=== PATIENT | female | born 1955 | race African-American/Black ===

== ENCOUNTER → 2016-04-26 | Outpatient (CLI) | payer MEDICARE, OTHER ==
[~2016-04-26] MED LIST: ALBU18HF IH; ALEN70TA30; ASPI-650 PO; BENA10TA48; CARI350T PO; CILO100T PO; FLUO20CA38; HYDR-3504; MIRT15TA3 PO; PREG50CA PO; VAL2 PO; ZPAK; [UNRECOGNIZED DRUG - CODE]
--- NOTE | 2016-04-26 18:07 | RADRPT ---
PROCEDURE: CT Chest without contrast. CLINICAL INDICATION: Right chest pain. Abnormal chest radiograph with displacement of the trachea. TECHNIQUE: Helical axial sections were obtained through the chest without intravenous contrast enh ancement. Coronal and sagittal reformatted images were obtained from the axial source images. Total exam DLP is 452.84 mGy-cm. CTDIvol is 14.05 mGy. One or more of the following dose reduction memo hniques were used: Automated exposure control, adjustment of the mA and/or kV according to patient s ize, use of iterative reconstruction technique. COMPARISON: None FINDINGS: The lungs are clear with no airspace or interstitial disease. There is a possible mass in the azygo-esophageal recess inferiorly measuring 2.4 x 2.3 cm in AP and transverse dimensions on the right side of the esophagus. There is no other pulmonary nodule or mas s lesion. There is no mediastinal or hilar lymphadenopathy or mass. There is no axillary, supraclavicular, or internal mammary lymphadenopathy. The thoracic aorta is not dilated. Calcification is present in the aorta consistent with atheroscle rosis. The heart size is normal. There is an aberrant right subclavian artery arising distally from the ao rtic arch and extending posterior to the esophagus. This is a normal variant and may account for th e findings on chest radiograph. There is no pleural effusion or pericardial effusion. Images through the upper abdomen demonstrate normal visualized portions of the liver, spleen, and ad renals. There are degenerative changes of the spine. There is no fracture or lytic lesion. IMPRESSION: 1. Possible mass in the azygo-esophageal recess inferiorly measuring 2.4 x 2.3 cm. Correlation wit h contrast enhanced CT scan of the chest advised. 2. Atherosclerosis. 3. Aberrant right subclavian artery arising distally from the aortic arch and extending posterior t o the esophagus, a normal variant. This may account for the findings on chest radiograph. 4. Degenerative changes of the spine. 5. Otherwise unremarkable study. RPTAT: QQ .Federico Barton MD, MD Date Time Electronically viewed and signed by .Federico Barton MD, on 04/26/2016 18:07 .R/
== END | disposition home or self-care (01) ==
LOC: C/S 14:00
PROVIDERS: ATTEND Internal Medicine
DX: R93.49 Abnormal radiologic findings on diagnostic imaging of other urinary organs (principal); R07.9 Chest pain, unspecified; I70.90 Unspecified atherosclerosis
CPT/HCPCS: 71250

== ENCOUNTER → 2016-05-07 | Outpatient (CLI) | payer MEDICARE, OTHER ==
[~2016-05-07] MED LIST changes: +IOHEXOL 300MG/ML 150 ML BTL ONE; +SOD CHLORIDE 0.9% 100 ML ONE
--- NOTE | 2016-05-07 19:06 | RADRPT ---
PROCEDURE: CT Chest with and without. CLINICAL INDICATION: Chest pain in a patient with known lupus TECHNIQUE: CT scan of the chest with and without contrast was performed on a high-resolution multi detector CT scanner. The patient was scanned both before and following the uncomplicated intravenous administration of 90 cc of Omnipaque-300 contrast. Coronal and sagittal reformatted images were ob tained from the axial source images. The total exam CTDI = 15.82 mGy and DLP = 605.51 mGy-cm. One of the following 3 dose reduction techniques were utilized on this CT examination: Automated ex posure control; adjustment of the mA and/or kV according to patient size; or use of iterative recons truction technique. COMPARISON: 04/26/2016 CT chest FINDINGS: The visualized base of the neck and bilateral thyroid lobes are normal. The lungs are remarkable for bibasilar scarring. No focal opacification, effusion, pneumothorax, ed neelam, or nodules are seen. There is no pulmonary infiltrate. No mass lesion to suggest neoplasm is identified. The central tracheobronchial tree is clear. The mediastinum is again remarkable for an the aberrant right subclavian artery, normal origins of t he left subclavian artery and joint origin of the bilateral common carotid arteries. The middle medi astinal mass posterior to the left atrium is noted bordering the right lateral esophageal wall. Thi s mass does not enhance following contrast administration and measures 2.4 cm AP by 2.9 cm transvers e by 2.7 cm in superior inferior dimensions. 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 Recommend MRI with contrast to further evaluate. The aorta demonstrates minimal vascular calcifications. No evidence for pathologic lymphadenopathy is present. The heart size is normal w ithout evidence for pericardial thickening or effusion. The limited evaluation of the upper abdomen demonstrates mild diffuse fatty infiltration of the live r. The spleen, pancreas, and bilateral adrenal glands are normal. The patient is status post vance cystectomy changes. The bilateral kidneys demonstrate a right anterior middle to a inferior renal c ortical cyst. This measures 1.4 cm AP by 1.5 cm in transverse dimensions. The axillary regions, march bpectoral regions, and supraclavicular regions are all unremarkable. The surrounding chest wall is u nremarkable. The surrounding osseous structures are mild spondylosis of the imaged spine. No osteol ytic or osteoblastic lesion is detected. IMPRESSION: 1. Middle mediastinal non-enhancing mass measuring 2.4 cm AP by 2.9 cm transverse by 2.7 cm in supe rior inferior dimensions adjacent to the right posterolateral esophageal wall. Differential to incl ude enteric duplication cyst, bronchogenic cyst, and other benign lesions. Recommend MRI the chest with contrast to further evaluate. 2. Aberrant right subclavian artery and common trunk origin of the bilateral common carotid arterie s. 3. Bibasilar scarring 4. Diffuse fatty infiltration of the liver. 5. Right renal cortical cysts. RPTAT: HDC .Debora Mascorro MD, MD Date Time Electronically viewed and signed by .Debora Mascorro MD, MD on 05/07/2016 19:06 .C/
== END | disposition home or self-care (01) ==
LOC: C/S 11:19
PROVIDERS: ATTEND Internal Medicine
DX: R93.8 Abnormal findings on diagnostic imaging of other specified body structures (principal); R07.9 Chest pain, unspecified; K76.0 Fatty (change of) liver, not elsewhere classified; K22.9 Disease of esophagus, unspecified; N28.1 Cyst of kidney, acquired
CPT/HCPCS: 71260; Q9967

== ENCOUNTER → 2016-12-02 | Outpatient (CLI) | payer MEDICARE, OTHER ==
[~2016-12-02] MED LIST changes: +BARIUM SULFATE 135 ML (E-Z HD) PO ONE; -IOHEXOL 300MG/ML 150 ML BTL ONE; -SOD CHLORIDE 0.9% 100 ML ONE
--- NOTE | 2016-12-02 17:53 | RADRPT ---
PROCEDURE: Radiological examination of the esophagus CLINICAL INDICATION: Esophageal duplication cyst TECHNIQUE: The patient was NPO. The patient was given 8 ounces of barium with CO2 crystals orally via a cup. Subsequently videofluoroscopy was performed was performed. Routine esophageal images we re obtained. Fluoroscopy time: 1 min COMPARISON: CT chest from 05/07/2016 FINDINGS: Unremarkable oral phase of swallowing. Normal bolus formation and control. Normal lingular movement and propulsion. Normal bolus transfer. No spillage into pharynx. Unremarkable pharyngeal phase of swallowing. Normal swallow reflex. Normal pharyngeal contraction. N o laryngeal penetration identified. No aspiration identified. No pharyngeal residual identified. The esophagus is narrowed and deviated to the right at the level of the aortic arch, likely due to t he aberrant right subclavian artery/diverticulum of Kommerell seen at this level on the CT study fro m 05/07/2016. Contrast is noted to progress inferior to this level. More inferiorly, at a level just above the diaphragmatic hiatus, there is a structure on the right s trudi of the esophagus which produces mass effect extrinsically on the esophagus, narrowing it. This lesion correlates with a soft tissue lesion seen at this level on the recent CT study. No oral cont rast is noted to opacify the lesion. Contrast is noted to flow past the gastroesophageal junction i nto the stomach where normal rugal folds are opacified. A significant amount of contrast is noted t o hang above this lesion until it finally passes through. Limited views of the stomach are unremarkable. RPTAT: AA IMPRESSION: There is a structure just above the diaphragmatic hiatus on the right side of the esophagus which de viates in extrinsically compresses the esophagus at that level. This lesion corresponds to a soft t issue lesion seen at this level on the CT study from 05/07/2016. The lesion does not opacify with c ontrast. 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 An MRI of the chest without and with intravenou s contrast is recommended for further evaluation. More superiorly, there is a second structure on the left side of the esophagus which deviates and ex trinsically compresses the superior esophagus to the right. 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 RPTAT: EE Vel Elkins, Physician Date Time Electronically viewed and signed by Vel Elkins, Physician on 12/02/2016 17:52 RA/
== END | disposition home or self-care (01) ==
LOC: RAD 09:37
PROVIDERS: ATTEND Internal Medicine Gastroenterology
DX: Q39.8 Other congenital malformations of esophagus (principal)
CPT/HCPCS: 74230

== ENCOUNTER 2017-03-10 07:55 | Day surgery (SDC) | payer MEDICARE, OTHER ==
[~2017-03-10] VITALS: Ht 160 cm; Wt 85.2 kg
[2017-03-10] VITALS (12 sets, daily range): BP systolic 102–137; BP diastolic 61–77; PULSE 54–79; RESP 11–25; Ht 160 cm; Wt 85.2 kg
[~2017-03-10 07:55] MED LIST changes: -BARIUM SULFATE 135 ML (E-Z HD) PO ONE
[2017-03-10] MEDS ORDERED: GABA300C16 PO (08:49)
[2017-03-10] MEDS ORDERED: TRAM-40 PO (08:50)
[2017-03-10] MEDS ORDERED: HYDR12.58 PO (08:51)
--- NOTE | 2017-03-10 08:51 | RADRPT ---
PROCEDURE: XR Chest. CLINICAL INDICATION: Preoperative TECHNIQUE: Single frontal view of the chest was obtained COMPARISON: CT CHESTW 05/07/2016 FINDINGS: The heart is normal in size. There mediastinal mass is not well seen on the plain film radiograph. The lungs are clear. There is no pleural effusion or pneumothorax. RPTAT: AA IMPRESSION: No focal infiltrate. Mediastinal mass seen on CT was not well seen on the plain film radiograph. .Adeel Louise MD, MD Date Time Electronically viewed and signed by .Adeel Louise MD, MD on 03/10/2017 08:51 .S/
[2017-03-10] MEDS ORDERED: MET25 PO (08:52)
[2017-03-10] MEDS ORDERED: ALEN70TA30 PO (08:53)
[2017-03-10] MEDS ORDERED: HYDR200T5 PO (08:54)
[2017-03-10] MEDS ORDERED: BEN50 PO (08:54)
[2017-03-10 09:06] LABS: BASOPHILS % 0.2 % (0.0-2.0); EOSINOPHILS % 0.4 % (0.0-7.0); HEMATOCRIT 35.9 % (37.0-47.0); HEMOGLOBIN 12.5 g/dl (12.0-16.0); LYMPHOCYTES # 1.9 10^3/ul (0.8-2.9); LYMPHOCYTES % 36.4 % (15.0-51.0); MEAN CORPUSCULAR HEMOGLOBIN 33.5 pg (29.0-33.0); MEAN CORPUSCULAR HGB CONC 34.8 g/dl (32.0-37.0); MEAN CORPUSCULAR VOLUME 96.2 fl (82.0-101.0); MONOCYTE # 0.6 10^3/ul (0.3-0.9); MONOCYTES % 10.7 % (0.0-11.0); NEUTROPHIL # 2.7 10^3/ul (1.6-7.5); NEUTROPHILS % 52.1 % (39.0-77.0); PLATELET COUNT 179 10^3/UL (140-415); RED BLOOD COUNT 3.73 10^6/ul (4.20-5.40); RED CELL DISTRIBUTION WIDTH 12.3 % (11.5-14.5); WHITE BLOOD COUNT 5.1 10^3/ul (4.8-10.8)
[2017-03-10 09:26] LABS: INR 0.97; PROTIME 12.9 Sec (12.2-14.2)
[2017-03-10 09:27] LABS: PARTIAL THROMBOPLASTIN TIME 25.9 Sec (25.0-35.0)
[2017-03-10 09:36] LABS: ALBUMIN 3.7 g/dl (3.3-4.9); ALBUMIN/GLOBULIN RATIO 1.08; BILIRUBIN,INDIRECT 0.1 mg/dl (0-1.1); BILIRUBIN,TOTAL 0.1 mg/dl (0.2-1.3); TOTAL PROTEIN 7.1 g/dl (6.1-8.1)
[2017-03-10 09:44] LABS: CALCIUM 9.3 mg/dl (8.4-10.2); CREATININE 1.07 mg/dl (0.44-1.00); POTASSIUM 4.2 mmol/L (3.5-5.1)
[2017-03-10] MEDS ORDERED: LABETALOL HCL 20MG INJ IV PRN (10:00)
[2017-03-10] MEDS ORDERED: FENTAnyl 50 MCG/ML VIAL IV PRN (10:00)
[2017-03-10] MEDS ORDERED: PROCHLORPERAZINE 10 MG INJ IV PRN (10:00)
[2017-03-10] MEDS ORDERED: OXYCODONE/ACETAMINOPHEN (5/325) TAB PO PRN (10:00)
[2017-03-10] MEDS ORDERED: HYDROmorphONE (0.2 MG/ML) 10ML SYG IV PRN (10:00)
[2017-03-10] MEDS ORDERED: hydrALAzine 20 MG INJ IV PRN (10:00)
[2017-03-10] MEDS ORDERED: ONDANSETRON 4 MG INJ IV PRN (10:00)
[2017-03-10] MEDS ORDERED: DIPHENHYDRAMINE 50 MG INJ IV PRN (10:00)
[2017-03-10] MEDS ORDERED: MEPERIDINE 25 MG INJ IV PRN (10:00)
[2017-03-10] MEDS ORDERED: LIDOCAINE 1% (MPF) 30 ML INJ MT ONE (10:15)
[2017-03-10] MEDS ORDERED: LIDOCAINE 2% (SDV) 5 ML INJ ONE (10:27)
[2017-03-10] MEDS ORDERED: PROPOFOL 20 ML ONE (10:27)
[2017-03-10] MEDS ORDERED: MIDAZOLAM 1 MG/ML 2 ML INJ ONE (10:27)
[2017-03-10] MEDS ORDERED: LIDOCAINE 1% (MPF) 30 ML INJ ONE (10:28)
[2017-03-10] MEDS ORDERED: DEXAMETHASONE 4 MG/ML 1 ML INJ ONE (10:39)
[2017-03-10] MEDS ORDERED: ONDANSETRON 4 MG INJ ONE (10:39)
[2017-03-10] MEDS ORDERED: FAMOTIDINE 20 MG INJ ONE (10:39)
[2017-03-10] MEDS ORDERED: SUCCINYLCHOLINE CHLORIDE 100 MG/5 ML SYG IV ONE (10:49)
--- NOTE | 2017-03-10 11:02 | OPR ---
Date/Time of Note Date/Time of Note DATE: 03/10/17 TIME: 11:01 Operative Report Procedure Date: Mar 10, 2017 Preoperative Diagnosis Mediastinal mass Postoperative Diagnosis same Surgeon see signature line Jan[employer]er no Anesthesia Type: general Estimated Blood Loss: none Transfusion none Specimen Bronch Bx Grafts/Implants none Complications none Procedure Description Dictated RAMÓN PRESCOTT MD Mar 10, 2017 11:02
--- NOTE | 2017-03-10 11:23 | OPR ---
DATE OF OPERATION: PREOPERATIVE DIAGNOSIS: Mediastinal mass. POSTOPERATIVE DIAGNOSIS: Mediastinal mass. OPERATION PERFORMED: 1. Bronchoscopy. 2. Bronchial biopsy. ANESTHESIA: General. CONSENT: Risks, benefits, complications, alternative therapies explained to the patient and the мария prietoy, consent obtained. OPERATIVE TECHNIQUE: The patient was placed in supine position, prepped and draped in usual sterile fashion, intubated. Time-out was called, bronchoscope was advanced into the trachea. Trachea appe ared to be normal proximally, but there was mass posteriorly which appeared to be bulging at the car talia, extending into the right main stem. Otherwise, the right main stem appeared to be normal. The right upper lobe bronchus appeared to be normal. No masses, no lesions. The bronchus intermedius and the smaller bronchi in the right side were all normal. On the left side, the left mainstem was normal. No lesions and the left upper, left lower bronchi appeared to be normal. Two biopsies were done of the mass in the posterior mediastinum at the santosh and the right main demond m bronchus. No evidence of any bleeding was noted. The procedure was terminated. Dictated By: RAMÓN SHAVER/TATUM Conf#: [id number] DID#: [id number]
--- NOTE | 2017-03-14 16:04 | RADRPT ---
Vent Rate: 52 bpm RR Interval: 0 msec [place] Interval: 118 msec QRS Duration: 80 msec QT Interval: 456 msec QTC Interval: 424 msec P-R-T [place]: 71 - -2 - 29 degrees Sinus bradycardia Otherwise normal ECG Electronically Signed By: Danilo Munoz [id number]
== END 2017-03-10 12:20 | disposition home or self-care (01) ==
LOC: SDS 07:55
PROVIDERS: ATTEND Thoracic Surgery (Cardiothoracic Vascular Surgery)
DX: R19.00 Intra-abdominal and pelvic swelling, mass and lump, unspecified site (principal); Z88.3 Allergy status to other anti-infective agents
CPT/HCPCS: 31625; 71010; 80053; 85025; 85610; 85730; 88307; 93005; J1100; J1170; J2250; J2405

== ENCOUNTER → 2017-08-18 | Outpatient (CLI) | END | disposition home or self-care (01) ==

== ENCOUNTER → 2017-08-26 | Outpatient (CLI) | END | disposition home or self-care (01) ==